=== PATIENT | female | born 1935 | race Two or more races ===

== ENCOUNTER 2022-07-23 11:08 | Outpatient (CLI) | payer OTHER | END 2022-07-23 11:11 | disposition home or self-care (01) | LOC: RAD 11:08 | PROVIDERS: ATTEND Internal Medicine | DX: Z12.31 Encounter for screening mammogram for malignant neoplasm of breast (principal); M25.551 Pain in right hip; M25.561 Pain in right knee; I70.0 Atherosclerosis of aorta ==

== ENCOUNTER → 2022-07-23 12:10 | Outpatient (CLI) | payer OTHER | END | disposition home or self-care (01) | LOC: NUCLEAR 11:00 | PROVIDERS: ATTEND Internal Medicine | DX: M81.0 Age-related osteoporosis without current pathological fracture (principal) ==